=== PATIENT | female | born 1995 | race Caucasian/White ===

== ENCOUNTER 2018-03-23 17:27 | Emergency (ER) | payer OTHER ==
[2018-03-23] MEDS: KETOROLAC TROMETHAMINE 10 MG TAB PO (20:56)
[2018-03-23] MEDS: NORCO 5/325MG TABLET (BULK FOR ED) PO (22:33)
== END 2018-03-23 22:35 | disposition home or self-care (01) ==
LOC: M ED 17:27
DX: G89.29 Other chronic pain (principal); M25.552 Pain in left hip; M25.511 Pain in right shoulder
CPT/HCPCS: 73030

== ENCOUNTER 2018-09-24 10:54 | Emergency (ER) | payer OTHER ==
[~2018-09-24] VITALS: Ht 152.4 cm; Wt 54.5 kg
[~2018-09-24 10:54] MED LIST: BIRTH CONTROL; HYDR-3715 PO
[2018-09-24 10:55] VITALS: BP 120/70
[2018-09-24] MEDS ORDERED: PRED20TA PO (11:34)
== END 2018-09-24 11:42 | disposition home or self-care (01) ==
LOC: M ED 10:54
DX: R21 Rash and other nonspecific skin eruption (principal); T78.49XA Other allergy, initial encounter; X58.XXXA Exposure to other specified factors, initial encounter; Y92.89 Other specified places as the place of occurrence of the external cause; Z79.3 Long term (current) use of hormonal contraceptives